=== PATIENT | female | born 1975 | race Hispanic/Latino ===

== ENCOUNTER 2020-01-07 19:46 | Inpatient (IN) | payer BC, OTHER ==
[~2020-01-07] VITALS: Ht 154.9 cm; Wt 92.7 kg
[2020-01-07 20:32] LABS: BASOPHILS % (AUTO) 0.2 % (0.0-5.0); EOSINOPHILS % (AUTO) 0.3 % (0.0-8.0); HEMATOCRIT 37.7 % (36-48); LYMPHOCYTES % (AUTO) 3.3 % (21.0-51.0); MEAN CORPUSCULAR HEMOGLOBIN 31.7 pg (27.0-33.0); MEAN CORPUSCULAR HGB CONC 34.2 g/dL (32.0-36.0); MEAN CORPUSCULAR VOLUME 92.6 fL (79-99); MONOCYTES % (AUTO) 6.2 % (3.0-13.0); NEUTROPHILS % (AUTO) 89.7 % (40.0-77.0); PLATELET COUNT (AUTO) 235 K/uL (130-400); RED BLOOD CELL COUNT(AUTO) 4.07 MIL/uL (4.00-5.50); RED CELL DISTRIBUTION WIDTH 11.9 % (11.0-15.5); WHITE BLOOD COUNT (AUTO) 11.5 K/uL (4.8-10.8)
[2020-01-07 20:42] LABS: CREATININE 1.2 mg/dL (0.5-1.5); INR 1.03 (0.85-1.15); POTASSIUM 3.7 mmol/L (3.5-5.1); PROTHROMBIN TIME 11.1 SEC (9.6-11.6)
[2020-01-07 20:51] LABS: ALBUMIN 4.2 g/dL (3.5-5.0); BILIRUBIN,TOTAL 3.1 mg/dL (0.2-1.0); TOTAL PROTEIN, SERUM 7.7 g/dL (6.0-8.3)
[2020-01-07 20:51] LABS: APPEARANCE,URINE Clear (CLEAR); BILIRUBIN,URINE Small (NEGATIVE); COLOR,URINE Dark Yellow (YELLOW); GLUCOSE, URINE (UA) Negative (NEGATIVE); KETONES,URINE Negative (NEGATIVE); LEUKOCYTE ESTERASE ,URINE Negative (NEGATIVE); NITRATE,URINE Negative (NEGATIVE); OCCULT BLOOD,URINE Small (NEGATIVE); PH,URINE 5.5 (5.0-8.0); PROTEIN,URINE POS 2+ mg/dL (NEGATIVE)
[2020-01-07 21:02] LABS: BACTERIA,URINE Rare /HPF (None Seen); SQUAMOUS EPITHELIAL CELL,UR Rare /HPF (0-2); WBC,URINE 0-1 /HPF (0-1)
[2020-01-07 21:03] LABS: TRANSITIONAL EPI CELLS,URINE Rare /HPF (None Seen)
[2020-01-07] MEDS: SODIUM CHLORIDE 0.9% 1000ML 1,000 ML IV SCH (23:00)
[2020-01-07] MEDS ORDERED: ONDANSETRON HCL 4 MG/2 ML VIAL IVP PRN (23:00)
[2020-01-07] MEDS ORDERED: SODIUM CHLORIDE 0.9% 1000ML 1,000 ML IV ONE (23:24)
[2020-01-08] VITALS (7 sets, daily range): BP systolic 118–157; BP diastolic 45–71
[2020-01-08] MEDS ORDERED: CABE0.5T2 PO (04:08)
[2020-01-08] MEDS ORDERED: OMEP40CA13 PO (04:08)
[2020-01-08] MEDS: MORPHINE SULFATE 2 MG/ML 1ML SYG IVP PRN (05:12)
[2020-01-08 05:46] LABS: POTASSIUM 3.6 mmol/L (3.5-5.1)
--- NOTE | 2020-01-08 10:30 | NUR ---
CONSULT Dr Orellana aware of consult ,will review record
--- NOTE | 2020-01-08 11:10 | NUR ---
MRCP RETURN FROM XRAY VIA WHEELCHAIR DENIES ABD PAIN CO HEADACHE PAIN RATES A 5
[2020-01-08] MEDS: PANTOPRAZOLE 40 MG/VIAL IVP SCH (11:59)
[2020-01-08] MEDS ORDERED: GADODIAMIDE 10 MMOL/20 ML VIAL IV ONE (12:41)
--- NOTE | 2020-01-08 16:35 | NUR ---
DCP IA done by Finesse Gonzalez RN. As per Finesse spoke to pt. Pt is independent prior to admission, lives at home with spouse Kash Ramos JR. Denies any equipments/services. Feels safe to go back home, still works and drives, spouse able to assist with transportation and needs as necessary. Verified SS#: [id number]. DC plan to home once stable. CM to continue to follow up. Addendum: 01/08/20 at 1637 by MENDEL GONCALVES LVN CM Amended: Links added.
--- NOTE | 2020-01-08 19:00 | NUR ---
MD YADIRA FELIZ VISITED WITH PATIENT. POC DISCUSSED. NEW ORDERS RECEIVED AND CARRIED OUT. NO QUESTIONS OR CONCERNS VOICED AT THIS TIME. NO COMPLAINTS OF PAIN VOICED. VITALS STABLE. AFEBRILE. TOLERATING CLEAR LIQUID DIET WELL. NO NAUSEA OR VOMITING NOTED. NS INFUSING AT 60ML/HR. HOB ELEVATED. CALL LIGHT WITHIN REACH. WILL CONTINUE TO BE OBSERVED. Addendum: 01/08/20 at 2121 by MARQUISE GARCIA RN RN Amended: Links added.
[2020-01-08] MEDS: ZOSYN 3.375GM+NS 50ML 50 ML IV SCH (21:07)
[2020-01-08] MEDS: ACETAMINOPHEN 325 MG TAB PO PRN (21:09)
[2020-01-09] VITALS (12 sets, daily range): BP systolic 102–132; BP diastolic 44–75
[2020-01-09 04:01] LABS: HEMATOCRIT 35.6 % (36-48); MEAN CORPUSCULAR HEMOGLOBIN 31.5 pg (27.0-33.0); MEAN CORPUSCULAR HGB CONC 32.9 g/dL (32.0-36.0); RED BLOOD CELL COUNT(AUTO) 3.71 MIL/uL (4.00-5.50); RED CELL DISTRIBUTION WIDTH 12.3 % (11.0-15.5); WHITE BLOOD COUNT (AUTO) 4.8 K/uL (4.8-10.8)
[2020-01-09 04:17] LABS: ALBUMIN 3.4 g/dL (3.5-5.0); BILIRUBIN,TOTAL 1.3 mg/dL (0.2-1.0); POTASSIUM 3.5 mmol/L (3.5-5.1)
[2020-01-09] MEDS: SODIUM CHLORIDE 0.9% 1000ML 1,000 ML IV SCH ×2 (04:54→10:16)
[2020-01-09] MEDS: ZOSYN 3.375GM+NS 50ML 50 ML IV SCH ×3 (04:54→21:03)
[2020-01-09] MEDS ORDERED: IOHEXOL-350 50ML VIAL IV ONE (06:49)
[2020-01-09] MEDS ORDERED: FENTANYL CITRATE PF 50 MCG/1 ML 2ML VIAL ONE (07:08)
[2020-01-09] MEDS ORDERED: PROPOFOL 10 MG/ML 20ML VIAL IV ONE (07:08)
[2020-01-09] MEDS ORDERED: MIDAZOLAM HCL 1 MG/ML 2ML VIAL ONE (07:08)
[2020-01-09] MEDS ORDERED: ROCURONIUM 10MG/1ML SYR 10 MG/ML ML ONE (07:12)
[2020-01-09 07:16] LABS: HEPATITIS A ANTIBODY IGM Negative (Negative); HEPATITIS B CORE IGM Negative (Negative); HEPATITIS Bs ANTIGEN SCREEN P Negative (Negative)
[2020-01-09] MEDS ORDERED: INDOMETHACIN 50 MG SUPP.RECT RC SCH (09:00)
[2020-01-09] MEDS: PANTOPRAZOLE 40 MG/VIAL IVP SCH (10:13)
[2020-01-09] MEDS: ACETAMINOPHEN 325 MG TAB PO PRN (19:29)
[2020-01-10] VITALS (7 sets, daily range): BP systolic 127–153; BP diastolic 53–85
[2020-01-10] MEDS: SODIUM CHLORIDE 0.9% 1000ML 1,000 ML IV SCH ×2 (03:28→21:11)
[2020-01-10] MEDS: ZOSYN 3.375GM+NS 50ML 50 ML IV SCH ×3 (03:42→21:11)
[2020-01-10] MEDS: PANTOPRAZOLE 40 MG/VIAL IVP SCH (10:09)
--- NOTE | 2020-01-10 21:31 | NUR ---
NURSING ROUNDS PT IN BED. NO C/O PAIN NAUSEA OR DISCOMFORTS. ADMIN IV FLUIDS AND IV ATBX PER JUN. SCD CONNECTED BILAT TO LE. ENCOURAGED PT TO USE CALL LIGHT FOR ANY ASSISTANCE NEEDED- PT VERBALIZED AGREEMENT.
[2020-01-11] VITALS (27 sets, daily range): BP systolic 109–168; BP diastolic 46–72
[2020-01-11] MEDS: ZOSYN 3.375GM+NS 50ML 50 ML IV SCH ×3 (04:16→20:35)
--- NOTE | 2020-01-11 06:03 | NUR ---
NOTE PT PRE-PROCEDURE SHOWER COMPLETED. CONSENT FOR LAPAROSCOPIC CHOLECYSTECTOMY SIGNED AND IN CHART. ZOSYN ATBX RUNNING AT THIS TIME. SCDs ON. CONFIRMED WITH DRIVER HELPER THAT PT IS ON THE SCHEDULE FOR SX THIS AM.
[2020-01-11] MEDS: PANTOPRAZOLE 40 MG/VIAL IVP SCH (08:42)
[2020-01-11] MEDS ORDERED: LIDOCAINE PF 2% 5ML ABBOJECT ONE (09:18)
[2020-01-11] MEDS ORDERED: MIDAZOLAM HCL 1 MG/ML 2ML VIAL ONE (09:18)
[2020-01-11] MEDS ORDERED: PROPOFOL 10 MG/ML 20ML VIAL IV ONE (09:18)
[2020-01-11] MEDS ORDERED: FENTANYL CITRATE PF 50 MCG/1 ML 2ML VIAL ONE (09:18)
[2020-01-11] MEDS ORDERED: SUCCINYLCHOLINE 200MG/10ML SYR ONE (09:18)
[2020-01-11] MEDS ORDERED: ONDANSETRON HCL 4 MG/2 ML VIAL ONE (09:19)
[2020-01-11] MEDS ORDERED: DEXAMETHASONE SOD PHOSPHATE 4 MG/ML 1ML VIAL ONE (09:19)
[2020-01-11] MEDS ORDERED: NEOSTIGMINE 5MG/5ML SYR IV ONE (09:19)
[2020-01-11] MEDS ORDERED: GLYCOPYRROLATE 1 MG/5 ML SYRINGE ONE (09:19)
[2020-01-11] MEDS ORDERED: ROCURONIUM 10MG/1ML SYR 10 MG/ML ML ONE (09:19)
[2020-01-11] MEDS ORDERED: DEXAMETHASONE SOD PHOSPHATE 10MG/ML 1ML VIAL ONE (09:28)
[2020-01-11] MEDS ORDERED: BUPIVACAINE/PF 0.5% 30ML VIAL ONE (09:43)
[2020-01-11] MEDS ORDERED: MEPERIDINE-PF 25 MG/ML SYG ONE (10:40)
--- NOTE | 2020-01-11 11:10 | NUR ---
POST-OP PT BACK IN ROOM POST LAP-DIONTE. PT AAOX3, DENIES PAIN AT MOMENT. VITAL SIGNS STABLE. NOTED 4 BAND-AIDS TO ABD. PT IN BED SIDE RAILS UP X2. WILL CINTINUE TO MONITOR.
[2020-01-11] MEDS: MORPHINE SULFATE 2 MG/ML 1ML SYG IVP PRN (12:10)
[2020-01-11] MEDS ORDERED: MORPHINE SULFATE 4 MG/1ML SYG IV PRN (12:15)
[2020-01-11] MEDS: ACETAMINOPHEN 325 MG TAB PO PRN (14:21)
[2020-01-11] MEDS: LACTATED RINGERS 1000ML 1,000 ML IV SCH (22:15)
[2020-01-12] MEDS: LACTATED RINGERS 1000ML 1,000 ML IV SCH ×3 (02:00→18:18)
[2020-01-12] MEDS: ACETAMINOPHEN 325 MG TAB PO PRN (02:03)
[2020-01-12] MEDS: SODIUM CHLORIDE 0.9% 1000ML 1,000 ML IV SCH (03:00)
[2020-01-12 04:00] VITALS: BP 127/64
[2020-01-12] MEDS: ZOSYN 3.375GM+NS 50ML 50 ML IV SCH ×2 (04:23→12:45)
[2020-01-12 05:54] LABS: BASOPHILS % (AUTO) 0.2 % (0.0-5.0); EOSINOPHILS % (AUTO) 0.4 % (0.0-8.0); HEMATOCRIT 35.5 % (36-48); LYMPHOCYTES % (AUTO) 21.2 % (21.0-51.0); MEAN CORPUSCULAR HEMOGLOBIN 31.6 pg (27.0-33.0); MEAN CORPUSCULAR HGB CONC 34.6 g/dL (32.0-36.0); MEAN CORPUSCULAR VOLUME 91.3 fL (79-99); MONOCYTES % (AUTO) 6.6 % (3.0-13.0); NEUTROPHILS % (AUTO) 71.3 % (40.0-77.0); PLATELET COUNT (AUTO) 296 K/uL (130-400); RED BLOOD CELL COUNT(AUTO) 3.89 MIL/uL (4.00-5.50); RED CELL DISTRIBUTION WIDTH 11.5 % (11.0-15.5); WHITE BLOOD COUNT (AUTO) 11.4 K/uL (4.8-10.8)
[2020-01-12 06:19] LABS: CREATININE 0.8 mg/dL (0.5-1.5); POTASSIUM 3.2 mmol/L (3.5-5.1)
[2020-01-12 08:08] VITALS: BP 132/58
[2020-01-12] MEDS: PANTOPRAZOLE 40 MG/VIAL IVP SCH (08:44)
[2020-01-12 12:27] VITALS: BP 137/66
[2020-01-12 18:40] VITALS: BP 132/58
--- NOTE | 2020-01-12 19:37 | NUR ---
DISCHARGE DR MATUTE IN TO SEE PATIENT AND DECIDED TO DISCHARGE PATIENT. ALL QUESTION AND CONCERNS ADDRESSED IV TO RIGHT AC DISCONTINUED CATHETER INTACT NO TELE MONITOR TO REMOVE. ALL DISCHARGE INSTRUCTIONS AND PAPER WORK GIVEN TO PATIENT. PATIENT AND ALL BELONGINGS TAKEN DOWNSTAIRS VIA WHEEL CHAIR.
== END 2020-01-12 19:50 | disposition home or self-care (01) | DRG 419 ==
LOC: EDH 19:46 → EDHIP 22:27 → 3BH 01-08 03:07
PROVIDERS: ADMIT Internal Medicine; ATTEND Internal Medicine
PROC: 0FC98ZZ Extirpation of Matter from Common Bile Duct, Via Natural or Artificial Opening Endoscopic (ICD-10-PCS; 2020-01-09)
PROC: BF101ZZ Fluoroscopy of Bile Ducts using Low Osmolar Contrast (ICD-10-PCS; 2020-01-09)
PROC: 0FT44ZZ Resection of Gallbladder, Percutaneous Endoscopic Approach (ICD-10-PCS; principal; 2020-01-11 09:19)
DX: K80.61 Calculus of gallbladder and bile duct with cholecystitis, unspecified, with obstruction (principal); Z20.828 Contact with and (suspected) exposure to other viral communicable diseases; E66.9 Obesity, unspecified; D35.2 Benign neoplasm of pituitary gland; Z68.38 Body mass index [BMI] 38.0-38.9, adult
CPT/HCPCS: 36415; 43262; 43264; 74183; 74330; 76705; 80048; 80053; 80074; 81001; 81025; 82150; 82550; 82948; 83690; 84484; 85025; 85027; 85610; 85730; 87426; 93005; A4606; A9579; C1769; C1773; C9113; G0378; J0330; J1100; J2001; J2175; J2250; J2270; J2405; J2543; J2704; J2710; J3010; J3490; J7030; J7120; Q9967

== ENCOUNTER → 2024-03-27 | Outpatient (CLI) | payer BC ==
[~2024-03-27] MED LIST: CABE0.5T2 PO; OMEP40CA21 PO
--- NOTE | 2024-03-27 12:43 | HMCIMG ---
SCREENING MAMMOGRAM REASON: Annual Exam COMPARISON: none TECHNIQUE: CC and MLO views of the bilateral breasts were performed.CAD was performed as well. FINDINGS: Parenchymal density: The breasts are heterogeneously dense, which may obscure small masses. There are no focal mass lesions. There are no pathologic appearing calcifications. There is no evidence of architectural distortion or skin thickening. IMPRESSION: Normal screening mammogram The patient was entered into a reminder system with a target due date for their next mammogram. BI-RADS CATEGORY 1: NEGATIVE Recommend monthly self breast exam as well as annual clinical examination. A negative x-ray should not delay biopsy if a dominant or clinically suspicious mass is present, since 8-10% of cancers are not identified by mammography. Dense breasts particularly, may obscure an underlying neoplasm. Some of these may be detected clinically and therefore, clinical examination is an essential part of breast evaluation.
== END | disposition home or self-care (01) ==
LOC: RAH 11:38
PROVIDERS: ATTEND Family Medicine
DX: Z12.31 Encounter for screening mammogram for malignant neoplasm of breast (principal); R92.333 Mammographic heterogeneous density, bilateral breasts
CPT/HCPCS: 77067